=== PATIENT | female | born 1970 | race Caucasian/White ===

== ENCOUNTER 2018-06-14 11:36 | Day surgery (SDC) | payer BC ==
[~2018-06-14] VITALS: Ht 167.6 cm; Wt 113.4 kg
[~2018-06-14 11:36] MED LIST: CALCIUM 600 +1 EAC6 PO; CYANOCOBAL1000 MCG/M IM; DAILY MULTIPLE1 EACH PO; DOXYCYCLINE MON50 MG PO; ESTRADIOL1 MG PO; LEVOTHYROXINE25 MCG PO; METFORMIN HCL500 MG PO; NEXIUM20 MG PO; TRIMETHOPRIM100 MG PO; VITAMIN C100 MG PO; VITAMIN D5000 UNIT PO
--- NOTE | 2018-06-14 14:00 | NUR ---
06/14/18 1400 Christelle Urbina SN 1338- PT ARRIVES IN PACU. PT IS RESTING IN BED IWTHEYES CLOSED. RESPS EVEN AND UNLABORED. 02 SAT MID TO HIGH 90'SOMN 3L VIA NC. CO2 MONITOR IN PLACE. PT DENIES ANY NAUSEA PAIN AND DIZZINESS AT THIS TIME. 1340- PT REPORTS MILD CRAMPING. EDUCATED ON FLATUS AND IMPORTANT OF PASSING FLATUS. PT VERBALIZED UNDERSTANDING. 1347- PT 02 REMOVED AND PT TOLERATING WELL. RESPS EVEN AND UNLABORED. 02 SATS MID 90'S ON RA. PT DENYING ANY PAIN NAUSEA AND DIZZINESS AT THSI TIME. HOB ELEVATED TO SEMI FOWLERS AND PT IS TOELRATING THIS WELL.
--- NOTE | 2018-06-15 15:36 | OR ---
[facility] [address], [place] [address] Signed DATE OF OPERATION: 06/14/2018 SURGEON: Christian Chavarria MD PREOPERATIVE DIAGNOSES: 1. History of ulcerative colitis with total proctocolectomy with ileoanal pull-through (J-pouch) 2000; episodic persistent diarrhea and perianal pain. 2. Left upper abdominal pain, progressive and worsening. 3. History of gastroesophageal reflux. POSTOPERATIVE DIAGNOSES: 1. Poor flap valve without sign of associated esophagitis; small gastric polyp, minimal gastric inflammation. 2. Normal J-pouch in ileum up to 40 cm; mild inflammatory change of ileoanal anastomotic area. PROCEDURE: 1. Esophagogastroduodenoscopy with biopsy. 2. J-pouchoscopy with biopsy. ANESTHESIA: Intravenous sedation, fentanyl 150 mg, Versed 9 mg. INDICATION: This 48-year-old white woman is a patient of Dr. Jakub Munoz in [place], [place]. 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 She underwent total proctocolectomy with ileoanal pull-through for intractable ulcerative colitis in 2000. She has generally gotten along well with her J-pouch. She has undergone laparotomy with drainage of mesenteric abscess by me in 2005 with lysis of adhesions and segmental bowel resection as well as right ovarian cystectomy and open cholecystectomy at that time. She has had episodes of left upper abdominal pain. She is known to have reflux disease in part related to her obesity, which was generally managed well with Nexium 40 mg daily. Her pain is mostly in the left upper abdomen. On that basis, she is to undergo upper endoscopy to better characterize the problem and specifically to assess her gastric inflammation or ulcer. Additionally, the patient had episodes of diarrhea, sometimes responsive to Flagyl and considered likely to be consistent with pouchitis. She has had no blood per rectum. She was recently seen to have probable posterior anal fissure. Diltiazem ointment has been given with equivocal benefit. She still has some diarrhea and occasions of anal pain. She was admitted to undergo J-pouchoscopy on that basis as well. The risks of Electronically Signed By: CHRISTIAN CHAVARRIA MD 06/15/18 1536 PATIENT NAME: JAMIL POLANCO OPERATIVE REPORT DATE OF : 68 REPORT #: [id number] PHYSICIAN: CHRISTIAN CHAVARRIA MD PCP: JAKUB MUNOZ MD REPORT IS CONFIDENTIAL AND NOT TO BE RELEASED WITHOUT AUTHORIZATION [facility] [address], [place] [address] Signed bleeding, infection, perforation of above procedures risks were reviewed in detail. She understands and wished to proceed. FINDINGS: On upper endoscopy, the esophagus was essentially normal. There was no Poe's epithelium, stricture or neoplasm. I saw no gross evidence of inflammation really. The flap valve was somewhat poor, but there was no grossly enlarged hiatal hernia. The stomach had a fine reticular appearance and no specific gastritis. A small polyp was noted, and this was excised. The duodenum was normal, CLOtest was negative. On pouchoscopy the ileum appeared to be healthy. Endoscopic evaluation was undertaken up to approximately 40 cm, showing no sign of proximal stricture or other problem. The pouch itself appeared to be a good capacity. There was mild inflammatory change of the ileoanal anastomosis area. Digital examination was somewhat uncomfortable for her. I did not see a true fissure in the perianal area either, however. DESCRIPTION OF PROCEDURE: The patient was brought to the endoscopy suite and given topical Hurricaine spray hypopharyngeal anesthesia and placed in lateral decubitus position and given intravenous sedation to the point of slurred speech and nystagmus. A bite block was placed. With full cardiopulmonary monitoring, an Olympus video upper endoscope was passed in the hypopharynx. The vocal cords were normal. The scope was advanced to the esophagus, throughout its length it appeared normal. Scope was advanced to the stomach. Generally, it appeared normal. There was a fine reticular appearance with no sign of actual gastritis, no ulceration or neoplasm. There was no bile in the stomach. Pylorus was normal. Antral motility was normal. Scope was passed through the pylorus into the duodenum, which was normal. Biopsies were taken of the second portion as well as the bulbar portion. The scope was withdrawn to the stomach where a small polyp was noted in the midportion and this were excised with cold morcellation technique. Biopsies were obtained for both DELPHINE and pathologic testing of the antrum and proximal stomach. Retroflexed view showed a somewhat poor flap valve, but no sign of large hiatal hernia per se. The scope was withdrawn to the distal esophagus where biopsies were obtained though the mucosa appeared normal. Careful withdrawal of scope showed no other findings. Plans were then made for a pouch endoscopy. The table was rotated and using the same upper endoscope, the pouch examination was undertaken. Initially, a digital rectal examination was undertaken, which showed mild tightness of the anastomosis, but with significant discomfort. An Olympus video upper endoscope as previously used was passed into the pouch and manipulated proximally as far as could be tolerated and was possible at approximately 40-50 cm. The mucosa well proximal to the pouch itself was normal. There was no sign of intraluminal abnormality or inflammation, certainly no evidence of Crohn's in any way. The scope was withdrawn after biopsies taken and view of the pouch showed to be widely patent and with good capacity. Retroflexed view showed Electronically Signed By: CHRISTIAN CHAVARRIA MD 06/15/18 1536 PATIENT NAME: JAMIL POLANCO OPERATIVE REPORT DATE OF : 68 REPORT #: [id number] PHYSICIAN: CHRISTIAN CHAVARRIA MD PCP: JAKUB MUNOZ MD REPORT IS CONFIDENTIAL AND NOT TO BE RELEASED WITHOUT AUTHORIZATION [facility] [address], [place] [address] Signed a tight anastomosis. No stricture. No other abnormality. Upon withdrawal of the scope in the area of the ileoanal anastomosis area, there was mild inflammation, this was biopsied. The scope was removed and the patient taken to recovery room in good condition and clean. DIAGNOSIS: Uncertain etiology of left upper abdominal pain. The possibility of adhesions related to prior exploration and mesenteric drainage is a consideration. As regard to the diarrhea, she does not have obvious pouchitis. She had responded to Flagyl previously. In her situation, we will await the biopsies before initiating any specific therapy. We will prescribe Questran for diarrhea and assess if that is helpful to the process for diarrhea and so on. Loperamide is an option as well and a standard, but this may be beneficial also. It is recalled, she has had cholecystectomy. MD MILAN Palomino/GABRIEL /[id number] cc: Jakub Munoz MD Copies: JAKUB MUNOZ MD ~ Electronically Signed By: CHRISTIAN CHAVARRIA MD 06/15/18 1536 PATIENT NAME: JAMIL POLANCO MARI OPERATIVE REPORT DATE OF : 68 REPORT #: [id number] PHYSICIAN: CHRISTIAN CHAVARRIA MD PCP: JAKUB MUNOZ MD REPORT IS CONFIDENTIAL AND NOT TO BE RELEASED WITHOUT AUTHORIZATION
== END 2018-06-14 14:30 | disposition home or self-care (01) ==
LOC: DS 11:36 → OPS 11:36 → DS 13:00 → OPS 14:30
PROVIDERS: Surgery
PROC: 0DB38ZX Excision of Lower Esophagus, Via Natural or Artificial Opening Endoscopic, Diagnostic (ICD-10-PCS; 2018-06-14)
PROC: 0DB98ZX Excision of Duodenum, Via Natural or Artificial Opening Endoscopic, Diagnostic (ICD-10-PCS; 2018-06-14)
PROC: 0DBB8ZX Excision of Ileum, Via Natural or Artificial Opening Endoscopic, Diagnostic (ICD-10-PCS; 2018-06-14)
PROC: 0DBQ8ZX Excision of Anus, Via Natural or Artificial Opening Endoscopic, Diagnostic (ICD-10-PCS; 2018-06-14)
PROC: 0DB78ZX Excision of Stomach, Pylorus, Via Natural or Artificial Opening Endoscopic, Diagnostic (ICD-10-PCS; principal; 2018-06-14 13:00)
PROC: 0DB68ZX Excision of Stomach, Via Natural or Artificial Opening Endoscopic, Diagnostic (ICD-10-PCS; 2018-06-14 13:00)
DX: K91.850 Pouchitis (principal); K62.89 Other specified diseases of anus and rectum; K31.7 Polyp of stomach and duodenum; K29.70 Gastritis, unspecified, without bleeding; K60.0 Acute anal fissure; E11.9 Type 2 diabetes mellitus without complications; E03.9 Hypothyroidism, unspecified; K21.9 Gastro-esophageal reflux disease without esophagitis; D53.9 Nutritional anemia, unspecified; D53.8 Other specified nutritional anemias; G43.909 Migraine, unspecified, not intractable, without status migrainosus; Z87.19 Personal history of other diseases of the digestive system; Z90.49 Acquired absence of other specified parts of digestive tract; Z88.5 Allergy status to narcotic agent; Z88.8 Allergy status to other drugs, medicaments and biological substances; Z98.890 Other specified postprocedural states
CPT/HCPCS: 99153; G0500; J2250; J3010